=== PATIENT | female | born 1945 | race Caucasian/White ===

== ENCOUNTER 2017-12-20 11:17 | Outpatient (CLI) | payer OTHER | END 2017-12-20 11:33 | disposition home or self-care (01) | LOC: SONOGRAMA 11:17 | DX: N63.11 Unspecified lump in the right breast, upper outer quadrant (principal); N63.23 Unspecified lump in the left breast, lower outer quadrant; N60.11 Diffuse cystic mastopathy of right breast; N60.12 Diffuse cystic mastopathy of left breast ==